=== PATIENT | female | born 1970 | race Asian ===

== ENCOUNTER 2022-01-01 09:03 | Emergency (ER) | payer MEDICAID, OTHER ==
[~2022-01-01] VITALS: Ht 162.6 cm; Wt 53.5 kg
[2022-01-01 09:53] LABS: HEMATOCRIT 33.2 % (31.2-41.9); MEAN CORPUSCULAR HEMOGLOBIN 32.2 uug (24.7-32.8); MEAN CORPUSCULAR VOLUME 95.8 fL (75.5-95.3); PLATELET COUNT (AUTO) 207 K/uL (179-408)
[2022-01-01 10:05] LABS: *BILIRUBIN,URIN NEGATIVE (NEGATIVE); *CLARITY,URINE CLEAR (CLEAR); *COLOR,URINE YELLOW (YELLOW); *KETONES,URINE NEGATIVE (NEGATIVE); *UROBILINOGEN,URINE 0.2 E.U./dl (NORMAL); LEUKOCYTE ESTERASE ,URINE NEGATIVE (NEGATIVE); NITRITE, URINE NEGATIVE (NEGATIVE); PH,URINE 6.5 (5.0-8.0); UGLUCOSE NEGATIVE (NEGATIVE)
[2022-01-01 10:12] LABS: CARBON DIOXIDE 31 mmol/L (21-32); CHLORIDE 105 mmol/L (98-107); CREATININE 0.4 mg/dL (0.6-1.3); GLUCOSE 85 mg/dL (74-106); POTASSIUM 4.3 mmol/L (3.5-5.1); UREA NITROGEN, BLOOD 11 mg/dL (7-18)
[2022-01-01 10:15] LABS: *BLOOD, URINE TRACE (NEGATIVE)
[2022-01-01 10:18] LABS: *AMPHETAMINE, URINE NEGATIVE (NEGATIVE); *CANNABINOID, URINE NEGATIVE (NEGATIVE); *COCCAINE, URINE NEGATIVE (NEGATIVE); *PHENCYCLIDINE SCREEN,URINE NEGATIVE (NEGATIVE)
[2022-01-01 10:21] LABS: ALANINE AMINOTRANSFERASE 24 U/L (14-59); ALKALINE PHOSPHATASE 54 U/L (50-136); ASPARTATE AMINOTRANSFERASE 20 U/L (15-37); BILIRUBIN,DIRECT < 0.1 mg/dL (0.0-0.2); BILIRUBIN,TOTAL 0.2 mg/dL (0.2-1.0); TOTAL PROTEIN, SERUM 7.1 g/dL (6.4-8.2)
[2022-01-01 10:27] LABS: *OPIATE, URINE NEGATIVE (NEGATIVE)
[2022-01-01] MEDS ORDERED: LAMO25TA10 PO (10:35)
[2022-01-01] MEDS ORDERED: METH2.5T PO (10:35)
[2022-01-01] MEDS ORDERED: LATA2.5D15 OP (10:35)
[2022-01-01] MEDS ORDERED: PRED20TA PO (10:35)
[2022-01-01] MEDS ORDERED: QUET25TA PO (10:35)
--- NOTE | 2022-01-01 10:38 | NUR ---
CALLED NNEKA TABOR FOR PSYCH EVAL.
--- NOTE | 2022-01-01 10:41 | NUR ---
pt provided the med list.
[2022-01-01 10:44] LABS: ETHANOL < 3 MG/DL (0-0)
[2022-01-01 10:46] LABS: BACTERIA,URINE NONE SEEN /HPF (NONE SEEN); RBC,URINE 0-3 /HPF (0-3); SQUAMOUS EPITHELIAL CELL,UR FEW /HPF (NONE SEEN); WBC,URINE 0-3 /HPF (0-3)
[2022-01-01 11:06] LABS: ACETAMINOPHEN < 2.0 ug/mL (10-30)
[2022-01-01 11:47] LABS: EOSINOPHILS % (MANUAL) 4 % (0-8); LYMPHOCYTES % (MANUAL) 46 % (20-40); MONOCYTES % (MANUAL) 15 % (2-10); NEUTROPHILS % (MANUAL) 35 % (42-75)
--- NOTE | 2022-01-01 12:30 | NUR ---
pt finished the lunch tray with good apetite.
--- NOTE | 2022-01-01 13:00 | NUR ---
NNEKA BANUELOS SALIVA AT BEDSIDE.
[2022-01-01] MEDS ORDERED: LORAZEPAM 0.5 MG TABLET PO ONE (13:30)
[2022-01-01] MEDS ORDERED: QUETIAPINE FUMARATE 25 MG TABLET PO ONE ×2 (13:30→21:00)
[2022-01-01] MEDS ORDERED: QUETIAPINE FUMARATE 25 MG TABLET ONE ×2 (13:40→21:08)
[2022-01-01] MEDS ORDERED: LORAZEPAM 1 MG TABLET ONE (13:40)
--- NOTE | 2022-01-01 14:11 | NUR ---
PT REQUESTINE HER ROUTINE DAILY PREDNISONE 10MG. ORDERED IT.
[2022-01-01] MEDS ORDERED: predniSONE 10 MG TABLET PO ONE (14:15)
[2022-01-01] MEDS ORDERED: predniSONE 10 MG TABLET ONE (14:19)
--- NOTE | 2022-01-01 14:30 | NUR ---
PT RESTING, NO SIGN OFDISTRESS.
--- NOTE | 2022-01-01 18:16 | NUR ---
[facility] DINNER PROVIDED. PT MABULATED MULTIPLE TIMES TO BATHROOM.
--- NOTE | 2022-01-01 19:34 | NUR ---
Dr. Hebert on bedside. Patient lying in bed. Awake at this time. No anxiety noted. Awaiting for PET team/Karely.
--- NOTE | 2022-01-01 20:09 | NUR ---
PET team Karely arrived to do evaluation.
--- NOTE | 2022-01-01 20:19 | NUR ---
Dr. Hebert on bedside.
--- NOTE | 2022-01-01 21:51 | NUR ---
Pt sleeping at this time. Appears comfortable. In no acute distress.
--- NOTE | 2022-01-01 22:55 | NUR ---
Assisted patient to toilet then back to bed.
--- NOTE | 2022-01-02 05:50 | NUR ---
Patient awake, had 1 incontinent episode of urine. Bedsheet change, assisted patient to the toilet. Food also provided per patient request.
--- NOTE | 2022-01-02 06:51 | NUR ---
Patient in room, AAOx3. In no acute distress. Denies any pain or SOB. Needs assessed and attended to.
--- NOTE | 2022-01-02 07:21 | NUR ---
Patient is alert, awake, sitting on a wheelchair, singing multiple songs loudly in the hallway, saying "Good Morning Milagro! What is the weather today?" repeatedly to no one in particular, mildy directable, tangential thoughts noted, pressure of speech heard. Patient is for repeat psych evaluation this morning per Dr Hebert's directive as endorsed by previous RN Diana.
--- NOTE | 2022-01-02 07:28 | NUR ---
Psych support worker Karely is now here again to reevaluate the patient.
--- NOTE | 2022-01-02 08:15 | NUR ---
Patient is eating breakfast with good appetite. Patient is medically by our ER doctor to go home and psychiatrically cleared by Karely. Patient discharged to home in stable condition. Written and verbal after care instructions given. Patient verbalized understanding and compliance of instructions. Stressed follow up with primary doctor or return to ER for worsening s/s. Patient said that someone will pick her up.
--- NOTE | 2022-01-02 09:00 | NUR ---
Patient was seen by ER psych social worker Mabel. Patient will be picked up by her own insurance provided ride, ETA=1-3 hours from now. ball machine operator Andrei and Dr Vyas were updated accordingly.
--- NOTE | 2022-01-02 09:06 | NUR ---
Clinical Social Work Note SUHAIL met with patient to discuss plans for transportation. Patient stated that her insurance, [employer], provides transportation but someone in the hospital needs to arrange the transportation.SW called [employer] ([phone]) to coordinate transportation. SW provided the information needed and denial management representative stated that ETA for pickup between 1 hour to 3 hours. SUHAIL provided ED nursing station phone number in order for transportation to call upon arrival.
== END 2022-01-02 10:40 | disposition home or self-care (01) ==
LOC: ER 09:03
DX: F31.9 Bipolar disorder, unspecified (principal); M32.9 Systemic lupus erythematosus, unspecified; Z79.899 Other long term (current) drug therapy; Z20.822 Contact with and (suspected) exposure to COVID-19
CPT/HCPCS: 36415; 71045; 80048; 80076; 80299; 80307; 80320; 81001; 84484; 84702; 85007; 85025; 87426; 93005; 99285; J7512; 70030-TC; A4663; G0480

== ENCOUNTER 2024-06-04 20:17 | Emergency (ER) | payer OTHER ==
[~2024-06-04] VITALS: Ht 160 cm; Wt 46.7 kg
[~2024-06-04 20:17] MED LIST: LAMO25TA10 PO; LATA2.5D15 OP; METH2.5T PO; PRED20TA PO; QUET25TA PO
[2024-06-04] MEDS ORDERED: ACETAMINOPHEN 500 MG TABLET ONE (20:41)
[2024-06-04] MEDS: ACETAMINOPHEN 500 MG TABLET PO ONE (20:45)
[2024-06-04] MEDS ORDERED: ACET-73 PO (20:50)
[2024-06-04 21:09] VITALS: BP 128/88; TEMP 98; O2SAT 98
== END 2024-06-04 21:05 | disposition home or self-care (01) ==
LOC: ER 20:34
DX: R51.9 Headache, unspecified (principal); M54.9 Dorsalgia, unspecified; F31.9 Bipolar disorder, unspecified; Z79.891 Long term (current) use of opiate analgesic; Z79.899 Other long term (current) drug therapy; W18.39XA Other fall on same level, initial encounter; Y93.89 Activity, other specified; Y92.091 Bathroom in other non-institutional residence as the place of occurrence of the external cause; Y99.8 Other external cause status
CPT/HCPCS: 71045; A4606; A4663; A9150